=== PATIENT | male | born 1995 | race Caucasian/White ===

== ENCOUNTER 2017-11-10 18:28 | Emergency (ER) | payer OTHER ==
[2017-11-10 19:21] LABS: INFLUENZA A AMPLIFICATION POSITIVE (NEGATIVE); INFLUENZA B AMPLIFICATION NEGATIVE (NEGATIVE)
[2017-11-10] MEDS: IBUPROFEN 800 MG TAB PO (20:23)
[2017-11-10] MEDS: ACETAMINOPHEN 325 MG TAB PO (20:24)
[2017-11-10] MEDS: OSELTAMIVIR PHOSPHATE 75 MG CAP (TAMIFLU) PO (20:24)
== END 2017-11-10 20:31 | disposition home or self-care (01) ==
LOC: M ED 18:28
DX: J09.X2 Influenza due to identified novel influenza A virus with other respiratory manifestations (principal)
CPT/HCPCS: 87502

== ENCOUNTER 2019-08-17 07:50 | Emergency (ER) | payer OTHER ==
[~2019-08-17] VITALS: Ht 182.9 cm; Wt 84.1 kg
[2019-08-17 07:50] VITALS: BP 148/84
[~2019-08-17 07:50] MED LIST: OSEL75CA PO
[2019-08-17] MEDS ORDERED: PENICILLIN V POTASSIUM 500 MG TAB PO ONE (08:30)
[2019-08-17] MEDS ORDERED: PENI500T PO (08:35)
== END 2019-08-17 08:48 | disposition home or self-care (01) ==
LOC: M ED 07:50
DX: J02.9 Acute pharyngitis, unspecified (principal); F17.200 Nicotine dependence, unspecified, uncomplicated

== ENCOUNTER 2019-11-25 23:45 | Emergency (ER) | payer OTHER ==
[~2019-11-25] VITALS: Ht 182.9 cm; Wt 81.8 kg
[~2019-11-25 23:45] MED LIST changes: +PENI500T PO
[2019-11-26] MEDS ORDERED: IBUPROFEN 600 MG TAB PO ONE (01:00)
[2019-11-26 01:18] VITALS: BP 153/80
--- NOTE | 2019-11-26 08:07 | REP ---
Left knee five views : There is no fracture or dislocation. Mineralization and joint spaces are normal. There are no calcifications or foreign bodies. Impression: Negative left knee . Electronically Signed by Dg Munoz MD 11/26/2019 07:58 A
== END 2019-11-26 01:30 | disposition home or self-care (01) ==
LOC: M ED 23:45
DX: S89.92XA Unspecified injury of left lower leg, initial encounter (principal); M25.562 Pain in left knee; W01.0XXA Fall on same level from slipping, tripping and stumbling without subsequent striking against object, initial encounter; Y92.89 Other specified places as the place of occurrence of the external cause; Y93.02 Activity, running; Y99.1 Military activity